=== PATIENT | male | born 1950 | race Caucasian/White ===

== ENCOUNTER 2022-04-30 10:48 | Inpatient (IN) | payer OTHER ==
[2022-04-30 11:59] VITALS: BMI 33.0
[2022-04-30] MEDS ORDERED: ONDANSETRON *ODT* 4 MG TABLET SL PRN (12:20)
[2022-04-30] MEDS ORDERED: BUPRENORPHINE HCL 150 MCG, BUPRENORPHINE HCL 75 MCG BC PRN (12:20)
[2022-04-30] MEDS ORDERED: ACETAMINOPHEN 325 MG TABLET (FP) PO PRN ×2 (12:20)
[2022-04-30] MEDS ORDERED: NICOTINE 10 MG CARTRIDGE (INHALER) IH PRN (12:20)
[2022-04-30] MEDS ORDERED: DICYCLOMINE HCL 10 MG CAPSULE PO PRN (12:20)
[2022-04-30] MEDS ORDERED: LOPERAMIDE HCL 2 MG CAPSULE PO PRN (12:20)
[2022-04-30] MEDS ORDERED: BISMUTH SUBSALICYLATE 524 MG/30 ML PO PRN (12:20)
[2022-04-30] MEDS ORDERED: MAGNESIUM HYDROX 2400MG/30ML ORAL SUSPENSION 30 ML CUP PO PRN (12:20)
[2022-04-30] MEDS ORDERED: BENZOCAINE/MENTHOL (CHLORASEPTIC ) LOZENGE MM PRN (12:20)
[2022-04-30] MEDS ORDERED: MAG HYDROX/AL HYDROX/SIMETH 30 ML UNIT-DOSE CUP PO PRN (12:20)
[2022-04-30] MEDS ORDERED: BUPRENORPHINE HCL 150 MCG, BUPRENORPHINE HCL 75 MCG BC ONE (12:20)
[2022-04-30] MEDS ORDERED: cloNIDine HCL 0.1 MG TABLET PO ONE (12:20)
[2022-04-30] MEDS ORDERED: IBUPROFEN 600 MG TABLET (FP) PO PRN (12:20)
[2022-04-30] MEDS ORDERED: MAGNESIUM CITRATE 300 ML BOTTLE PO PRN (12:20)
[2022-04-30] MEDS ORDERED: IBUPROFEN 400 MG TABLET (FP) PO PRN (12:20)
[2022-04-30] MEDS: metFORMIN HCL 500 MG TABLET (FP) PO SCH (14:03)
[2022-04-30] MEDS: PANTOPRAZOLE 40 MG TABLET PO SCH (14:04)
[2022-04-30] MEDS: METHOCARBAMOL 500 MG TABLET PO PRN (14:04)
[2022-04-30] MEDS ORDERED: cloNIDine HCL 0.1 MG TABLET PO PRN (16:20)
[2022-04-30] MEDS: METOPROLOL TARTRATE 25 MG TABLET (FP) PO SCH (22:22)
[2022-04-30] MEDS: ATORVASTATIN CA 20 MG TABLET (FP) PO SCH (22:22)
[2022-04-30] MEDS: THIAMINE HCL 100 MG TABLET (FP) PO SCH (22:22)
[2022-04-30] MEDS: hydrOXYzine PAMOATE 25 MG CAPSULE (FP) PO PRN (22:22)
[2022-04-30] MEDS: MELATONIN 5 MG TABLETS PO SCH (22:22)
[2022-05-01] MEDS ORDERED: BUPRENORPHINE HCL 150 MCG, BUPRENORPHINE HCL 75 MCG BC PRN
[2022-05-01] MEDS: diazePAM 5 MG TABLET PO PRN (05:14)
[2022-05-01] MEDS: BUPRENORPHINE HCL 150 MCG, BUPRENORPHINE HCL 75 MCG BC SCH ×2 (05:15→18:01)
[2022-05-01] MEDS: PANTOPRAZOLE 40 MG TABLET PO SCH (10:36)
[2022-05-01] MEDS: metFORMIN HCL 500 MG TABLET (FP) PO SCH (10:36)
[2022-05-01] MEDS: METOPROLOL TARTRATE 25 MG TABLET (FP) PO SCH ×2 (10:36→22:44)
[2022-05-01] MEDS: amLODIPine BESYLATE 10 MG TABLET (FP) PO SCH (10:36)
[2022-05-01] MEDS: PRENATAL VITAMINS W/ FOLIC ACID TABLET (FP) PO SCH (10:36)
[2022-05-01] MEDS: ISOSORBIDE MONONITRATE 60 MG TAB.SR.24H (FP) PO SCH (12:24)
[2022-05-01 14:31] LABS: HEMATOCRIT 32.1 % (35.4-49); MCH 31.3 pg (25.7-33.7); MCHC 34.4 g/dl (32.0-35.9); MEAN CELL VOLUME 91.1 fl (80-96); MEAN PLT VOLUME 8.3 fl (7.5-11.1); PLATELET COUNT 195 10^3/uL (134-434); RBC 3.53 M/mm3 (4.00-5.60); RDW 14.5 % (11.9-15.9); WHITE BLOOD COUNT 5.4 K/mm3 (4.0-10.0)
[2022-05-01 14:32] LABS: PH,URINE 5.5 (5.0-8.0); URINE APPEARANCE CLEAR; URINE BILIRUBIN NEGATIVE (NEGATIVE); URINE COLOR YELLOW; URINE GLUCOSE (UA) NEGATIVE (NEGATIVE); URINE KETONE NEGATIVE (NEGATIVE); URINE LEUK ESTERASE NEGATIVE (NEGATIVE); URINE NITRITE NEGATIVE (NEGATIVE); URINE PROTEIN NEGATIVE (NEGATIVE); URINE UROBILINOGEN 0.2 mg/dL (0.2-1.0)
[2022-05-01 14:47] LABS: CALCIUM 8.6 mg/dL (8.5-10.1)
[2022-05-01 14:52] LABS: BILIRUBIN,TOTAL 0.7 mg/dL (0.2-1); TOT PROT 6.1 g/dl (6.4-8.2)
[2022-05-01] MEDS: ATORVASTATIN CA 20 MG TABLET (FP) PO SCH (22:44)
[2022-05-01] MEDS: MELATONIN 5 MG TABLETS PO SCH (22:44)
[2022-05-01] MEDS: THIAMINE HCL 100 MG TABLET (FP) PO SCH (22:44)
[2022-05-02] MEDS: BUPRENORPHINE HCL 450 MCG FILM BC SCH ×2 (05:35→17:52)
[2022-05-02] MEDS: PRENATAL VITAMINS W/ FOLIC ACID TABLET (FP) PO SCH (10:01)
[2022-05-02] MEDS: ISOSORBIDE MONONITRATE 60 MG TAB.SR.24H (FP) PO SCH (10:01)
[2022-05-02] MEDS: diazePAM 5 MG TABLET PO PRN (10:01)
[2022-05-02] MEDS: amLODIPine BESYLATE 10 MG TABLET (FP) PO SCH (10:01)
[2022-05-02] MEDS: metFORMIN HCL 500 MG TABLET (FP) PO SCH (10:01)
[2022-05-02] MEDS: METOPROLOL TARTRATE 25 MG TABLET (FP) PO SCH ×2 (10:01→22:20)
[2022-05-02] MEDS: PANTOPRAZOLE 40 MG TABLET PO SCH (10:01)
[2022-05-02] MEDS: THIAMINE HCL 100 MG TABLET (FP) PO SCH (22:20)
[2022-05-02] MEDS: MELATONIN 5 MG TABLETS PO SCH (22:20)
[2022-05-02] MEDS: ATORVASTATIN CA 20 MG TABLET (FP) PO SCH (22:20)
[2022-05-03] MEDS: BUPRENORPHINE/NALOXONE 4 MG/1 MG FILM PACKET SL SCH ×2 (05:07→18:02)
[2022-05-03] MEDS: PRENATAL VITAMINS W/ FOLIC ACID TABLET (FP) PO SCH (10:19)
[2022-05-03] MEDS: ISOSORBIDE MONONITRATE 60 MG TAB.SR.24H (FP) PO SCH (10:19)
[2022-05-03] MEDS: amLODIPine BESYLATE 10 MG TABLET (FP) PO SCH (10:20)
[2022-05-03] MEDS: METOPROLOL TARTRATE 25 MG TABLET (FP) PO SCH ×2 (10:20→22:01)
[2022-05-03] MEDS: PANTOPRAZOLE 40 MG TABLET PO SCH (10:20)
[2022-05-03] MEDS: hydrOXYzine PAMOATE 25 MG CAPSULE (FP) PO PRN ×2 (10:20→22:00)
[2022-05-03] MEDS: metFORMIN HCL 500 MG TABLET (FP) PO SCH (10:20)
[2022-05-03] MEDS: ATORVASTATIN CA 20 MG TABLET (FP) PO SCH (22:00)
[2022-05-03] MEDS: METHOCARBAMOL 500 MG TABLET PO PRN (22:00)
[2022-05-03] MEDS: THIAMINE HCL 100 MG TABLET (FP) PO SCH (22:00)
[2022-05-03] MEDS: MELATONIN 5 MG TABLETS PO SCH (22:01)
[2022-05-04] MEDS ORDERED: BUPRENORPHINE/NALOXONE 8 MG/2 MG FILM PACKET SL ONE (06:00)
[2022-05-04 09:25] VITALS: RESP 18
[2022-05-04] MEDS: PRENATAL VITAMINS W/ FOLIC ACID TABLET (FP) PO SCH (10:28)
[2022-05-04] MEDS: METOPROLOL TARTRATE 25 MG TABLET (FP) PO SCH (10:28)
[2022-05-04] MEDS: PANTOPRAZOLE 40 MG TABLET PO SCH (10:28)
[2022-05-04] MEDS: amLODIPine BESYLATE 10 MG TABLET (FP) PO SCH (10:28)
[2022-05-04] MEDS: ISOSORBIDE MONONITRATE 60 MG TAB.SR.24H (FP) PO SCH (10:28)
[2022-05-04] MEDS: metFORMIN HCL 500 MG TABLET (FP) PO SCH (10:28)
[2022-05-04 12:46] VITALS: BP 107/55; PULSE 64; TEMP 97.1
== END 2022-05-04 14:25 | disposition home or self-care (01) | DRG 897 ==
LOC: YASAS 10:48 → Y6N 13:22
PROVIDERS: ADMIT Allergy & Immunology; ATTEND Surgery
PROC: HZ2ZZZZ Detoxification Services for Substance Abuse Treatment (ICD-10-PCS; principal; 2022-04-30)
DX: F11.23 Opioid dependence with withdrawal (principal); F17.210 Nicotine dependence, cigarettes, uncomplicated; F43.10 Post-traumatic stress disorder, unspecified; I10 Essential (primary) hypertension; E11.9 Type 2 diabetes mellitus without complications; Z79.84 Long term (current) use of oral hypoglycemic drugs; I73.9 Peripheral vascular disease, unspecified; R76.11 Nonspecific reaction to tuberculin skin test without active tuberculosis; M54.50 Low back pain, unspecified; G89.29 Other chronic pain; E66.9 Obesity, unspecified; Z68.33 Body mass index [BMI] 33.0-33.9, adult; Z96.642 Presence of left artificial hip joint; Z99.89 Dependence on other enabling machines and devices
CPT/HCPCS: 36415; 71046-TC-FY; 80053; 81003; 82962; 85027; 86780; 93005; 93010; C9803-CS; J0735; U0003; U0005